=== PATIENT | female | born 1970 | race American Indian/Alaskan Native ===

== ENCOUNTER 2018-05-11 17:36 | Emergency (ER) | payer OTHER, BC ==
[2018-05-11 18:05] VITALS: BMI 38.9
--- NOTE | 2018-05-11 18:14 | ED PDOC ---
Arrival/HPI - General Chief Complaint: GI Problem Time Seen by Provider: 05/11/18 17:46 Historian: Patient - History of Present Illness Narrative History of Present Illness (Text): 05/11/18 18:03 Patient is a 47 year old female with a past medical history of diabetes and hypertension presenting with a complaint of nausea and vomiting. Patient recently had a forklift accident at work and has been taking muscle relaxants to help with the pain. This morning she decided to take two tablets instead of an unknown muscle relaxant, believed to be flexeril, around 5am. Shortly after the ingestion, she started to feel lightheaded and became nauseous. She has been nauseous all day with intermittent vomiting. She decided to call for an ambulance when the vomiting did not stop. Patient denies any blood in the vomit. The last time she vomited was around 530pm. She has not been able to eat or drink all day. She is experiencing abdominal spasms but denies any pain. She feels weak and lightheaded when sitting upright. Denies fevers, chills, diarrhea , constipation, chest pain, shortness of breath, headaches, vision changes, numbness or tingling. Clarification of previous accident: Patient fell out of [employer] and landed on cement block wall. All of her weight landed on her left arm and skidded down the wall. She did not hit or head and denies LOC. She reports that she went directly to the emergency and as already had xrays saying there is no acute fracture. Past Medical History - Provider Review Nursing Documentation Reviewed: Yes Family/Social History - Physician Review Nursing Documentation Reviewed: Yes Family/Social History: No Known Family HX Allergies/Home Meds Allergies/Adverse Reactions: Allergies No Known Allergies Allergy (Verified 05/11/18 18:04) Review of Systems - Physician Review All systems were reviewed & negative as marked: Yes - Review of Systems Constitutional: Normal. absent: Fatigue, Fevers Eyes: Normal. absent: Vision Changes ENT: Normal. absent: Sore Throat Respiratory: Normal. absent: SOB, Cough, Sputum Cardiovascular: Normal. absent: Chest Pain, Calf Pain Gastrointestinal: Nausea, Vomiting. absent: Abdominal Pain (abdominal spasms), Constipation, Diarrhea, Hematochezia, Hematemesis Genitourinary Female: Normal, Vaginal Bleeding (started her period today.). absent: Dysuria Musculoskeletal: Normal. absent: Back Pain, Neck Pain Skin: Normal Neurological: Normal. absent: Headache Endocrine: Normal Hemo/Lymphatic: Normal Psychiatric: Normal. absent: Anxiety, Depression Physical Exam Vital Signs Reviewed: Yes Vital Signs Temp Pulse Resp BP Pulse Ox 05/11/18 22:00 89 16 127/79 100 05/11/18 21:06 98.2 F 107 H 18 125/85 100 05/11/18 18:36 98.3 F 78 18 131/80 97 05/11/18 18:17 97.8 F 78 17 133/77 98 Temperature: Afebrile Blood Pressure: Normal Pulse: Regular Respiratory Rate: Normal Appearance: Positive for: Well-Appearing, Non-Toxic, Comfortable Pain Distress: None Mental Status: Positive for: Alert and Oriented X 3 - Systems Exam Head: Present: Atraumatic, Normocephalic Extroacular Muscles: Present: EOMI Conjunctiva: Present: Normal Mouth: Present: Moist Mucous Membranes Pharnyx: Present: Normal. No: ERYTHEMA, EXUDATE Neck: Present: Normal Range of Motion. No: JVD, Lymphadenopathy Respiratory/Chest: Present: Clear to Auscultation, Good Air Exchange. No: Respiratory Distress, Accessory Muscle Use Cardiovascular: Present: Regular Rate and Rhythm, Normal S1, S2. No: Murmurs Abdomen: No: Tenderness (pressure suprapubically), Distention, Peritoneal Signs Upper Extremity: Present: NORMAL PULSES, Swelling, Neurovascularly Intact, Other (ecchymosis and abrasions on left UE, healing per patient. ). No: Cyanosis, Edema Lower Extremity: Present: Normal Inspection. No: Edema Neurological: Present: GCS=15, Speech Normal, Motor Func Grossly Intact Skin: Present: Warm, Dry, Normal Color. No: Rashes Lymphatic: No: Cervical Adenopathy Psychiatric: Present: Alert, Oriented x 3, Normal Insight, Normal Concentration Medical Decision Making ED Course and Treatment: 05/11/18 18:19 Patient is resting comfortably, speaking in full sentences stating she is still nauseous. Abdominal exam is remarkable for suprapubic pressure only. Patient reports spasms. No tenderness elicited. Labs, 1L bolus of NS and Zofran No imaging indicated at this time. 05/11/18 18:52 Patient is still feeling weak but is no longer feeling nauseous at this time. Awaiting bloodwork results. Re-evaluation Time: 18:52 Reassessment Condition: Improving,but remains with symptoms - Lab Interpretations Lab Results: 05/11/18 19:07 05/11/18 19:07 Lab Results 05/11/18 20:19: Lactate Dehydrogenase 416, Total Creatine Kinase 77, Troponin I < 0.01 05/11/18 20:13: Urine Color Yellow, Urine Appearance Clear, Urine pH 6.0, Ur Specific [place] 1.025, Urine Protein Trace H, Urine Glucose (UA) 250 H, Urine Ketones Negative, Urine Blood Negative, Urine Nitrate Negative, Urine Bilirubin Negative, Urine Urobilinogen 0.2, Ur Leukocyte Esterase Negative, Urine RBC Negative, Urine WBC 1 - 3, Ur Epithelial Cells 1 - 3, Urine Bacteria Few 05/11/18 19:07: Sodium 139, Potassium 4.0, Chloride 103, Carbon Dioxide 26, Anion Gap 14, BUN 18, Creatinine 0.7, Est GFR ( Amer) > 60, Est GFR (Non- Af Amer) > 60, Random Glucose 221 H, Calcium 9.0, Magnesium 1.8, Total Bilirubin 0.4, AST 22, ALT 21, Alkaline Phosphatase 71, Total Protein 8.0, Albumin 4.2, Globulin 3.9, Albumin/Globulin Ratio 1.1, Lipase 138 05/11/18 19:07: WBC 25.3 H*, RBC 4.17, Hgb 11.8 L, Hct 35.5 L, MCV 85.1, MCH 28.3, MCHC 33.2, RDW 14.2, Plt Count 370, MPV 10.4, Gran % 85.8 H, Lymph % (Auto ) 9.6 L, [place] % (Auto) 3.9, Eos % (Auto) 0.6 L, Baso % (Auto) 0.1, Gran # 21.74 H, Lymph # (Auto) 2.4, Cross # (Auto) 1.0 H, Eos # (Auto) 0.1, Baso # (Auto) 0.02 - Medication Orders Current Medication Orders: Discontinued Medications Sodium Chloride (Sodium Chloride 0.9%) 1,000 mls @ 999 mls/hr IV .Q1H1M STA Stop: 05/11/18 19:18 Last Admin: 05/11/18 19:58 Dose: 999 mls/hr eMAR Start Stop Document 05/11/18 19:58 SUD (Rec: 05/11/18 19:58 [facility] [id number]) Intravenous Solution Start Date 05/11/18 Start Time 18:30 Cefazolin Sodium (Ancef 1gm In Ns) 1 gm in 100 mls @ 100 mls/hr IVPB STAT STA Stop: 05/11/18 21:31 Last Admin: 05/11/18 21:04 Dose: 100 mls/hr eMAR Start Stop Document 05/11/18 21:04 [facility] (Rec: 05/11/18 21:04 [facility] [id number]) Intravenous Solution Start Date 05/11/18 Start Time 21:04 Ondansetron HCl (Zofran Inj) 4 mg IVP STAT STA Stop: 05/11/18 18:19 Last Admin: 05/11/18 18:30 Dose: 4 mg IVP Administration Document 05/11/18 18:30 [facility] (Rec: 05/11/18 19:59 [facility] [id number]) Charges for Administration # of IVP Administrations 1 Disposition/Present on Arrival - Present on Arrival Any Indicators Present on Arrival: No History of DVT/PE: No History of Uncontrolled Diabetes: No Urinary Catheter: No History of Decub. Ulcer: No History Surgical Site Infection Following: None - Disposition Have Diagnosis and Disposition been Completed?: Yes Diagnosis: Nausea and vomiting, Swelling of arm, Cellulitis of forearm, left Disposition: HOME/ ROUTINE Disposition Time: 19:00 Patient Plan: Discharge Condition: GOOD Discharge Instructions (ExitCare): Nausea and Vomiting, Adult (DC), Cellulitis (ED) Additional Instructions: Patient has been instructed to not take larger doses of her muscle relaxants than prescribed. She is only to take her medications as directed. Patient is to follow up with her primary care physician within 2-3 days. If patient experiences any new or worsening symptoms, please go to the nearest emergency facility. follow up with orthopedics and your pmd Prescriptions: Cephalexin [Keflex] 500 mg PO BID #14 capsule Ondansetron ODT [Zofran ODT] 8 mg PO TID #30 odt Referrals: Neil Santamaria III, MD [Medical Doctor] - Follow up with primary Forms: [employer] (Chinese)
[2018-05-11] MEDS ORDERED: Sodium Chloride 0.9% 1,000 ML IV STA (18:18)
[2018-05-11 19:13] LABS: BASO # 0.02 K/mm3 (0.0-2.0); BASO % 0.1 % (0.0-3.0); EOS # 0.1 (0.0-0.7); EOS % 0.6 % (1.5-5.0); GRAN # 21.74 (1.4-6.5); GRAN % 85.8 % (50.0-68.0); HEMOGLOBIN 11.8 g/dL (12.0-16.0); LYMPH # 2.4 (1.2-3.4); LYMPH % 9.6 % (22.0-35.0); MEAN CELL VOLUME 85.1 fl (80.0-105.0); MEAN CORPUSCULAR HEMOGLOBIN 28.3 pg (25.0-35.0); MEAN CORPUSCULAR HGB CONC 33.2 g/dl (31.0-37.0); MEAN PLATELET VOLUME 10.4 fl (7.0-11.0); MONO % 3.9 % (1.0-6.0); RBC 4.17 10^6/uL (3.5-6.1); RED CELL DISTRIBUTION WIDTH 14.2 % (11.5-14.5)
[2018-05-11 19:18] LABS: WHITE BLOOD COUNT 25.3 10^3/ul (4.5-11.0)
[2018-05-11 19:22] LABS: ALB/GLOB RATIO 1.1 (1.1-1.8); ALBUMIN 4.2 g/dL (3.0-4.8); ALT/SGPT 21 U/L (7-56); AST/SGOT 22 U/L (14-36); BLOOD UREA NITROGEN 18 mg/dL (7-21); GFR NON-AFRICAN AMERICAN > 60; LIPASE 138 U/L (23-300)
[2018-05-11 20:32] LABS: URINE APPEARANCE CLEAR (CLEAR); URINE BILIRUBIN NEGATIVE (NEGATIVE); URINE BLOOD NEGATIVE (NEGATIVE); URINE COLOR YELLOW (YELLOW); URINE GLUCOSE (UA) 250 mg/dL (NEGATIVE); URINE LEUKOCYTE ESTERASE NEGATIVE Leu/uL (NEGATIVE); URINE PROTEIN TRACE mg/dL (<30 mg/dL); URINE UROBILINOGEN 0.2 E.U./dL (<1 E.U./dL)
[2018-05-11] MEDS ORDERED: ceFAZolin 1 gm in NS 1 GM/100 ML BAG IVPB STA (20:32)
[2018-05-11 20:39] LABS: TROPONIN I < 0.01 ng/mL
[2018-05-11 20:48] LABS: URINE BACTERIA FEW (NEG); URINE RBC NEGATIVE /hpf (0-2)
--- NOTE | 2018-05-11 21:10 | ED PDOC ---
Physical Exam Vital Signs Temp Pulse Resp BP Pulse Ox 05/11/18 21:06 98.2 F 107 H 18 125/85 100 05/11/18 18:36 98.3 F 78 18 131/80 97 05/11/18 18:17 97.8 F 78 17 133/77 98 Medical Decision Making ED Course and Treatment: 05/11/18 21:10 Case signed out to me by Dr. Darden pending lab work, reassessment, and disposition. Patient has padmaja swelling to the left arm as noted. Concerning to compartment syndrome. On physical exam, patient's neurovascular exam is intact. [employer] measurements pressures were 16 volar and 22 dorsal. will tx for celluitis no evidence of compartment syndrome 05/12/18 01:05 - Lab Interpretations Lab Results: 05/11/18 19:07 05/11/18 19:07 Lab Results 05/11/18 20:19: Lactate Dehydrogenase 416, Total Creatine Kinase 77, Troponin I < 0.01 05/11/18 20:13: Urine Color Yellow, Urine Appearance Clear, Urine pH 6.0, Ur Specific [place] 1.025, Urine Protein Trace H, Urine Glucose (UA) 250 H, Urine Ketones Negative, Urine Blood Negative, Urine Nitrate Negative, Urine Bilirubin Negative, Urine Urobilinogen 0.2, Ur Leukocyte Esterase Negative, Urine RBC Negative, Urine WBC 1 - 3, Ur Epithelial Cells 1 - 3, Urine Bacteria Few 05/11/18 19:07: Sodium 139, Potassium 4.0, Chloride 103, Carbon Dioxide 26, Anion Gap 14, BUN 18, Creatinine 0.7, Est GFR ( Amer) > 60, Est GFR (Non- Af Amer) > 60, Random Glucose 221 H, Calcium 9.0, Magnesium 1.8, Total Bilirubin 0.4, AST 22, ALT 21, Alkaline Phosphatase 71, Total Protein 8.0, Albumin 4.2, Globulin 3.9, Albumin/Globulin Ratio 1.1, Lipase 138 05/11/18 19:07: WBC 25.3 H*, RBC 4.17, Hgb 11.8 L, Hct 35.5 L, MCV 85.1, MCH 28.3, MCHC 33.2, RDW 14.2, Plt Count 370, MPV 10.4, Gran % 85.8 H, Lymph % (Auto ) 9.6 L, [place] % (Auto) 3.9, Eos % (Auto) 0.6 L, Baso % (Auto) 0.1, Gran # 21.74 H, Lymph # (Auto) 2.4, [place] # (Auto) 1.0 H, Eos # (Auto) 0.1, Baso # (Auto) 0.02 I have reviewed the lab results: Yes - Medication Orders Current Medication Orders: Discontinued Medications Sodium Chloride (Sodium Chloride 0.9%) 1,000 mls @ 999 mls/hr IV .Q1H1M STA Stop: 05/11/18 19:18 Last Admin: 05/11/18 19:58 Dose: 999 mls/hr eMAR Start Stop Document 05/11/18 19:58 SUDO (Rec: 05/11/18 19:58 [facility] [id number]) Intravenous Solution Start Date 05/11/18 Start Time 18:30 Cefazolin Sodium (Ancef 1gm In Ns) 1 gm in 100 mls @ 100 mls/hr IVPB STAT STA Stop: 05/11/18 21:31 Last Admin: 05/11/18 21:04 Dose: 100 mls/hr eMAR Start Stop Document 05/11/18 21:04 SUDOJ (Rec: 05/11/18 21:04 [facility] [id number]) Intravenous Solution Start Date 05/11/18 Start Time 21:04 Ondansetron HCl (Zofran Inj) 4 mg IVP STAT STA Stop: 05/11/18 18:19 Last Admin: 05/11/18 18:30 Dose: 4 mg IVP Administration Document 05/11/18 18:30 SUDO (Rec: 05/11/18 19:59 [facility] [id number]) Charges for Administration # of IVP Administrations 1 - Scribe Statement The provider has reviewed the documentation as recorded by the Doris Bryant Provider Scribe Attestation: All medical record entries made by the Scribe were at my direction and personally dictated by me. I have reviewed the chart and agree that the record accurately reflects my personal performance of the history, physical exam, medical decision making, and the department course for this patient. I have also personally directed, reviewed, and agree with the discharge instructions and disposition. Disposition/Present on Arrival - Present on Arrival Any Indicators Present on Arrival: No History of DVT/PE: No History of Uncontrolled Diabetes: No Urinary Catheter: No History of Decub. Ulcer: No History Surgical Site Infection Following: None - Disposition Have Diagnosis and Disposition been Completed?: Yes Diagnosis: Nausea and vomiting, Swelling of arm, Cellulitis of forearm, left Disposition: HOME/ ROUTINE Disposition Time: 22:30 Condition: GOOD Discharge Instructions (ExitCare): Nausea and Vomiting, Adult (DC), Cellulitis (ED) Additional Instructions: Patient has been instructed to not take larger doses of her muscle relaxants than prescribed. She is only to take her medications as directed. Patient is to follow up with her primary care physician within 2-3 days. If patient experiences any new or worsening symptoms, please go to the nearest emergency facility. follow up with orthopedics and your pmd Prescriptions: Cephalexin [Keflex] 500 mg PO BID #14 capsule Ondansetron ODT [Zofran ODT] 8 mg PO TID #30 odt Referrals: Neil Santamaria III, MD [Medical Doctor] - Follow up with primary Forms: [employer] (Latvian)
[2018-05-11 21:11] VITALS: TEMP 98.2; O2SAT 100
[2018-05-11 23:59] VITALS: BP 127/79; PULSE 89; RESP 16
== END 2018-05-11 22:00 | disposition home or self-care (01) ==
LOC: ED 17:36
DX: L03.114 Cellulitis of left upper limb (principal); M79.89 Other specified soft tissue disorders; R11.2 Nausea with vomiting, unspecified; I10 Essential (primary) hypertension; E11.9 Type 2 diabetes mellitus without complications
CPT/HCPCS: 80053; 81001; 82550; 83615; 83690; 83735; 84484; 85025; 96374; 99284; J0690; J2405; J7030